=== PATIENT | female | born 1980 | race Caucasian/White ===

== ENCOUNTER 2017-09-06 18:43 | Emergency (ER) | payer SELFPAY ==
[2017-09-06] MEDS ORDERED: Tobramycin 0.3% OPHTH.SOL* 5 ML BOT (regular eye drops) BOTH EYES ONE (19:15)
[2017-09-06] MEDS ORDERED: Amoxicillin/Clavulanate TAB* 875 MG PO ONE (19:16)
[2017-09-06 19:21] VITALS: BP 153/106
--- NOTE | 2017-09-06 19:25 | UC ---
Complaint Female HPI - HPI Summary HPI Summary: 37 y/o female presents to the urgent care c/o rash in the suprapubic area with an itchy white vaginal discharge for the past 2 weeks. Pt reports she has s Hx of herpes and she thinks she has a flare up. LMP: 09/01/2017 with regular menstrual cycles. Pt states her rash is painful at touch. Pain 6/10. She has frequency on urination. Pt states she just move from [place] and she hasn't taken her BP medication. Pt denies fever, pelvic pain, lower back pain, abdominal pain, N/V/D. - History Of Current Complaint Chief Complaint: UCSkin Stated Complaint: PERSONAL Time Seen by Provider: 09/06/17 18:54 Hx Obtained From: Patient Hx Last Menstrual Period: LAST WK ?: No Onset/Duration: Gradual Onset, Lasting Weeks - 3 weeks, Still Present Timing: Constant Severity Initially: Mild Severity Currently: Mild Pain Intensity: 7 Pain Scale Used: 0-10 Numeric Character: Not Applicable Aggravating Factor(s): Other - touch Alleviating Factor(s): Nothing Associated Signs And Symptoms: Positive: Vaginal Discharge - white, Nausea. Negative: Genital Swelling, Genital Blisters - Risk Factors Ectopic Risk Factor: Negative Ovarian Torsion Risk Factor: Negative - Allergies/Home Medications Allergies/Adverse Reactions: Allergies Allergy/AdvReac Type Severity Reaction Status Date / Time Erythromycin Allergy Severe Hives Verified 09/06/17 19:21 Home Medications: Home Medications Amlodipine Besylate [Norvasc 10 mg tab] 10 mg PO DAILY 09/06/17 [History Confirmed 09/06/17] Cyclobenzaprine TAB* [Flexeril 10 MG TAB*] 10 mg PO TID PRN 09/06/17 [History Confirmed 09/06/17] Fluoxetine HCl 40 mg PO 09/06/17 [History Confirmed 09/06/17] Ibuprofen [Ibuprofen 200] 800 mg PO DAILY PRN 09/06/17 [History Confirmed ] PMH/Surg Hx/FS Hx/Imm Hx - Additional Past Medical History Additional PMH: Herpes Previously Healthy: Yes Cardiovascular History: Hypertension Psychological History: Anxiety, Depression - Surgical History Surgical History: Yes Surgery Procedure, Year, and Place: ECTOPIC x2. D & C miscarried - Family History Known Family History: Positive: Hypertension, Diabetes Family History: Stroke - Social History Occupation: Unemployed Lives: With Family Alcohol Use: Occasionally Substance Use Type: None Smoking Status (MU): Current Every Day Smoker Type: Cigarettes Amount Used/How Often: 1/2 PPD Length of Time of Smoking/Using Tobacco: 23 YRS Review of Systems Constitutional: Negative Skin: Negative Eyes: Negative ENT: Negative Respiratory: Negative Cardiovascular: Negative Gastrointestinal: Negative Genitourinary: Frequency, Vaginal/Penile Itching, Vaginal/Penile Discharge - white Motor: Negative Neurovascular: Negative Musculoskeletal: Negative Neurological: Negative Psychological: Negative Is Patient Immunocompromised?: No All Other Systems Reviewed And Are Negative: Yes Physical Exam Triage Information Reviewed: Yes Vital Signs: Initial Vital Signs Temp 98.1 F 09/06/17 19:12 Pulse 75 09/06/17 19:12 Resp 18 09/06/17 19:12 BP 153/106 09/06/17 19:12 Pulse Ox 99 09/06/17 19:12 - Additional Comments Vitals: reviewed General: Well developed, well [place]ed female , sitting in the examining table w/o any apparent distress.. Head: Normocephalic, no lesions. Eyes: PERRLA, EOM's full, conjunctivae clear, fundi grossly normal. Ears: EAC's clear, TM's normal. Nose: Mucosa normal, no obstruction. Throat: Clear, no exudates, no lesions. Neck: Supple, no masses, no thyromegaly, no bruits. Chest: Lungs clear, no rales, no rhonchi, no wheezes. Heart: RR, no murmurs, no rubs, no gallops. Abdomen: Soft, no tenderness, no masses, BS normal. : Normal, no lesions, no discharge, no hernias noted. Pelvic: I was assisted by Nurse Hilda. Positive suprapubic are with scattered erythematous papules aroun follicle, mild tenderness to palaption, pt shaved area. External genitalia within normal limits, no vesicles observed. There is no lesions there is no masses noted. Speculum exam: The vaginal beltran are within normal limits w/ white vaginal discharge,and fishy odor, no the lesions or rashes. The cervix is closed with no lesions or masses. There is no CMT's, and no adnexal masses. Sample sent to Lab for G/C , trichomonas and affirm. Rectal: No lesions, no hemorrhoids, Back: Normal curvature, no tenderness. Extremities: FROM, no deformities, no edema, no erythema. Neuro: Physiological, no localizing findings. Skin: Normal, no rashes, no lesions noted. Complaint Female Dx - Course Course Of Treatment: 37 y/o female presents to the urgent care c/o rash in the suprapubic area with an itchy white vaginal discharge for the past 2 weeks. Pt reports she has s Hx of herpes and she thinks she has a flare up. LMP : 09/01/2017 with regular menstrual cycles. Pt states her rash is painful at touch. Pain 6/10. She has frequency on urination. Pt states she just move from [place] and she hasn't taken her BP medication. Pt denies fever, pelvic pain, lower back pain, abdominal pain, N/V/D. Hx obtained. UA bere, result: negative. Pt with possible Bacterial Vaginosis and folliculitis on suprapubic area on examination. Pt's BP elevated, not taking medication for several days since she moved recently from [place]. Pt Rx Metronidazol topical cream for BV and Bacitracin topical ointent for folliculitis. Advised to call her PCP for a refill in BP medication , decrease salt in her diet and get an appt this week with a PCP near her. Advised to f/u with [facility] for a PAP. Specimen were sent to lab, Advised she will be notified if any abnormal result from lab. Pt understood and agreed with plan of care. - Differential Dx/Diagnosis Differential Diagnosis/HQI/PQRI: Cervicitis, Pelvic Inflammatory Disease, Renal Colic, Urinary Tract Infection, Other - herpes, folliculitis, Provider Diagnoses: 1- Bacterial Vaginosis. 2-Folliculitis. 3-Screening for STI. 4- Uncontrolled HTN Discharge - Discharge Plan Condition: Stable Disposition: HOME Prescriptions: Bacitracin OINTMENT* 1 applic TOPICAL TID #1 tube metroNIDAZOLE VAGINAL 0.75%* 1 applic VAGINAL BEDTIME #1 maribel Patient Education Materials: Bacterial Vaginosis (ED), Folliculitis (ED), Low Sodium Diet (ED) Referrals: Shana Garcia NP [Nurse Practitioner] - Additional Instructions: 1- Please apply Metronidazole topical cream as directed. 2-Apply bacitracin topical cream on affected area as directed to alleviate folliculitis. If not improvement or worsen of symptoms f/u with [facility] or PCP for further treatment 3- Specimen were sent to lab, if anything abnormal you will receive a call from us for further treatment. 4-Your BP is elevated today, please decrease salt in your diet and f/u with PCP for further management. If you develop dizziness, chest pain, severe BERNABE go immediately to the ER for further management
[2017-09-07 14:28] LABS: Trichomonas Source Endocervical (Negative)
== END 2017-09-06 20:25 | disposition home or self-care (01) ==
LOC: UCCORT 18:43
DX: N76.0 Acute vaginitis (principal); L73.9 Follicular disorder, unspecified; Z11.3 Encounter for screening for infections with a predominantly sexual mode of transmission; I10 Essential (primary) hypertension; F41.9 Anxiety disorder, unspecified; F32.9 Major depressive disorder, single episode, unspecified; Z88.1 Allergy status to other antibiotic agents; F17.210 Nicotine dependence, cigarettes, uncomplicated
CPT/HCPCS: 81003; 87480; 87491; 87510; 87591; 87661; 99202; G0463

== ENCOUNTER 2018-01-08 17:04 | Emergency (ER) | payer SELFPAY ==
[2018-01-08 17:17] VITALS: BP 177/114
--- NOTE | 2018-01-08 17:52 | RAD ---
HISTORY: Right ankle and foot pain and swelling COMPARISONS: None VIEWS: 6, Frontal, lateral, and oblique views of the right ankle and of the right foot FINDINGS: BONE DENSITY: Normal. BONES: There is no displaced fracture. JOINTS: There is no arthropathy. ALIGNMENT: There is no dislocation. SOFT TISSUES: There is circumferential soft tissue swelling. OTHER FINDINGS: None. IMPRESSION: SOFT TISSUE SWELLING. NO ACUTE OSSEOUS INJURY TO THE RIGHT ANKLE OR RIGHT FOOT. IF SYMPTOMS PERSIST, RECOMMEND REPEAT IMAGING.
--- NOTE | 2018-01-08 21:41 | UC ---
Vick Antonio Gabriel, scribed for West Novoa MD on 01/08/18 at 1731 . Lower Extremity/Ankle HPI - HPI Summary HPI Summary: This patient is a 37 year old F presenting to [facility] accompanied by her mother with a chief complaint of LLE pain and ecchymosis at the right knee since . The patient bumped her knee against a metal lift and seen and x-rayed, nothing significant was found. The patient rates the pain 7/10 in severity. Patient reports swelling and ecchymosis of the right ankle. - History of Current Complaint Chief Complaint: UCLowerExtremity Stated Complaint: SWOLLEN KNEE, ANKLE AND FOOT Time Seen by Provider: 01/08/18 17:23 Hx Obtained From: Patient Hx Last Menstrual Period: LAST WK Onset/Duration: Still Present Severity Initially: Moderate Severity Currently: Moderate Pain Intensity: 7 Pain Scale Used: 0-10 Numeric Able to Bear Weight: Yes - Allergies/Home Medications Allergies/Adverse Reactions: Allergies Allergy/AdvReac Type Severity Reaction Status Date / Time erythromycin base Allergy Hives Verified 01/08/18 17:17 Home Medications: Home Medications DULoxetine DR CAP* [Cymbalta CAP*] 60 mg PO DAILY 01/08/18 [History Confirmed ] Gabapentin 400 mg PO TID 01/08/18 [History Confirmed 01/08/18] PMH/Surg Hx/FS Hx/Imm Hx Cardiovascular History: Hypertension Other History Of: Negative For: Anticoagulant Therapy - Surgical History Surgical History: Yes Surgery Procedure, Year, and Place: ECTOPIC x2. D & C miscarried - Family History Known Family History: Positive: Hypertension, Diabetes Negative: Respiratory Disease, Seizure Disorder Family History: Stroke - Social History Occupation: Employed Full-time Alcohol Use: Occasionally Substance Use Type: None Smoking Status (MU): Current Every Day Smoker Type: Cigarettes Amount Used/How Often: 1/2 PPD Length of Time of Smoking/Using Tobacco: 23 YRS Review of Systems Constitutional: Negative - fever Skin: Bruising Musculoskeletal: Edema, Other: - pain at right ankle and knee All Other Systems Reviewed And Are Negative: Yes Physical Exam - Summary Physical Exam Summary: VITAL SIGNS: Reviewed. GENERAL: Patient is a well developed and nourished F who is lying comfortable in the stretcher. Patient is not in any acute respiratory distress. HEAD AND FACE: Normocephalic EYES: PERRLA, EOMI x 2. EARS: Hearing grossly intact. MOUTH: Oropharynx within normal limits. NECK: Supple, trachea is midline, no adenopathy, no JVD, no carotid bruit. CHEST: Symmetric, no tenderness at palpation LUNGS: Clear to auscultation bilaterally. No wheezing or crackles. CVS: Regular rate and rhythm, S1 and S2 present, no murmurs or gallops appreciated. ABDOMEN: Soft, non-tender. Bowel sounds are normal. No abdominal abnormal pulsations. EXTREMITIES: Full ROM in all major joints. There is mild swelling and ecchymosis in the right ankle. Onychomycosis of the right foot. NEURO: Alert and oriented x 3. No acute neurological deficits. Speech is normal and follows commands. SKIN: Dry and warm Triage Information Reviewed: Yes Vital Signs: Initial Vital Signs Temp 97.2 F 01/08/18 17:12 Pulse 73 01/08/18 17:12 Resp 20 01/08/18 17:12 BP 177/114 01/08/18 17:12 Pulse Ox 100 01/08/18 17:12 Vital Signs Reviewed: Yes Diagnostics - Radiology foot xray Radiology Interpretation Completed By: Radiologist - SOFT TISSUE SWELLING. NO ACUTE OSSEOUS INJURY TO THE RIGHT ANKLE OR RIGHT FOOT. IF SYMPTOMS PERSIST, RECOMMEND REPEAT IMAGING. Dr. Novoa has reviewed this report. ankle xray Radiology Interpretation Completed By: Radiologist - NO ACUTE OSSEOUS INJURY TO THE RIGHT ANKLE OR RIGHT FOOT. IF SYMPTOMS PERSIST, RECOMMEND REPEAT IMAGING. Dr. Novoa has reviewed this report. Re-Evaluation - Re-Evaluation First Eval Re-Evaluation Time: 17:35 Change: Unchanged Comment: The patients blood pressure was rechecked manually and it was 140/90. Second Eval Re-Evaluation Time: 18:24 Change: Unchanged Comment: I discussed test results and discharge with the patient. Lower Extremity Course/Dx - Course Course Of Treatment: The patient was found to have increased BP in UC. The patient will follow up with PCP for better control of BP. Right foot Xray reveals, SOFT TISSUE SWELLING. NO ACUTE OSSEOUS INJURY TO THE RIGHT ANKLE OR RIGHT FOOT. IF. SYMPTOMS PERSIST, RECOMMEND REPEAT IMAGING. Right ankle Xray reveals, SOFT TISSUE SWELLING. NO ACUTE OSSEOUS INJURY TO THE RIGHT ANKLE OR RIGHT FOOT. IF. SYMPTOMS PERSIST, RECOMMEND REPEAT IMAGING. I discussed all the findings and test results with the patient. Patient was instructed to return to the urgent care or go to ER immediately if any of the symptoms return or worsens. Plan of care was discussed with the patient, and patient understands and agrees. All questions were answered to patient satisfaction. There were no further complaints or concerns. - Differential Dx/Diagnosis Provider Diagnoses: HTN, ankle sprain, and foot sprain Discharge - Sign-Out/Discharge Documenting (check all that apply): Discharge - Discharge Plan Condition: Stable Disposition: HOME Prescriptions: Ibuprofen TAB* [Motrin TAB* 600 MG] 600 mg PO Q8H PRN #30 tab PRN Reason: Pain Patient Education Materials: Ankle Sprain (DC), Foot Sprain (ED) Referrals: ZOË Elliott [Primary Care Provider] - Additional Instructions: Your blood pressure was elevated during today's visit. Please follow up with your primary care provider in 1-2 weeks. Take medications as instructed Increase your fluid intake Return to the UC if symptoms worsen The documentation as recorded by the Vick caraballo Gabriel accurately reflects the service I personally performed and the decisions made by me, West Novoa MD.
== END 2018-01-08 18:30 | disposition home or self-care (01) ==
LOC: UCEAST 17:04
DX: S93.401A Sprain of unspecified ligament of right ankle, initial encounter (principal); S93.601A Unspecified sprain of right foot, initial encounter; W22.8XXA Striking against or struck by other objects, initial encounter; Y92.9 Unspecified place or not applicable; R03.0 Elevated blood-pressure reading, without diagnosis of hypertension; F17.210 Nicotine dependence, cigarettes, uncomplicated; Z88.3 Allergy status to other anti-infective agents
CPT/HCPCS: 99212; G0463